=== PATIENT | male | born 1990 | race Caucasian/White ===

== ENCOUNTER 2017-04-26 10:09 | Emergency (ER) | payer MEDICAID ==
[~2017-04-26] VITALS: Ht 172.7 cm; Wt 65.8 kg
[2017-04-26 11:14] VITALS: BP 127/81
== END 2017-04-26 11:14 | disposition home or self-care (01) ==
LOC: ED 10:09
DX: S61.011A Laceration without foreign body of right thumb without damage to nail, initial encounter (principal); W26.8XXA Contact with other sharp object(s), not elsewhere classified, initial encounter; Y93.H2 Activity, gardening and landscaping; Y99.8 Other external cause status; Y92.89 Other specified places as the place of occurrence of the external cause
CPT/HCPCS: 90715; J2001; J3490